=== PATIENT | female | born 1980 | race Caucasian/White ===

== ENCOUNTER → 2018-01-17 | Outpatient (CLI) | payer OTHER ==
--- NOTE | 2018-01-17 15:58 | CT ---
EXAM DESCRIPTION: Abdomen/Pelvis w/wo Contrast CLINICAL HISTORY: 37 years Female, EPIGASTRIC PAIN. R10.13 COMPARISON: None available. TECHNIQUE: Contiguous 3 mm axial images were obtained from the lung bases to the level of the proximal femora before and after the administration of intravenous and oral contrast. Sagittal and coronal reconstructions were reviewed. FINDINGS: THORAX: The imaged lower thorax demonstrates no gross abnormality. LIVER: Few subcentimeter hypodense lesions are identified within the liver, probably representing simple cysts. In addition there is a 1.7 cm hypodense lesion with peripheral discontinuous nodular enhancement and the periphery of hepatic segment 6, best seen on axial image #22, most likely representing a hemangioma. GALLBLADDER: Grossly unremarkable. PANCREAS: Appears normal with no cystic or solid lesions. SPLEEN: Normal ADRENAL GLANDS: Normal with no nodules or masses. KIDNEYS: Both kidneys enhance symmetrically with no hydronephrosis or nephrolithiasis or perinephric fluid collections. No focal masses are identified. The visualized ureters appear grossly unremarkable. STOMACH: The stomach is not well-distended limiting detailed evaluation. SMALL BOWEL: The small bowel loops demonstrate variable degrees of distention with no abnormal dilatation or other signs to suggest bowel obstruction. LARGE BOWEL: Majority of the colon is not well-distended limiting detailed evaluation. The appendix is well-visualized and appears normal No evidence of free intraperitoneal air or fluid. RETROPERITONEUM: The abdominal aorta is nonaneurysmal with no significant atherosclerosis. The inferior vena cava is normal in size and caliber. No abnormally enlarged retroperitoneal lymph nodes are identified. URINARY BLADDER:The urinary bladder is well-distended with no gross abnormality. 2.5 cm dominant follicle is noted in the right ovary. The left ovary appears normal. ADDITIONAL FINDINGS: None. BONES: No significant degenerative changes are identified in the visualized bones.No evidence of osteophytic or osteoblastic lesions. IMPRESSION: 1. Few subcentimeter too small to Sean hypodense lesions are scattered throughout the liver probably representing simple cysts. 2. 1.7 cm hemangioma is noted in hepatic segment 6. This exam was performed according to our departmental dose-optimization program, which includes automated exposure control, adjustment of the mA and/or kV according to patient size and/or use of iterative reconstruction technique. Electronically signed by: Eneida Cox MD 01/17/2018 3:57 PM CDT
== END ==
LOC: CT 09:59
PROVIDERS: ATTEND Family Medicine
DX: R10.13 Epigastric pain (principal); D18.03 Hemangioma of intra-abdominal structures